=== PATIENT | female | born 1990 | race Caucasian/White ===

== ENCOUNTER 2016-03-20 16:42 | Emergency (ER) | payer BC, OTHER ==
--- NOTE | 2016-03-20 18:59 | ED ---
General Adult HPI - General Chief complaint: Abdominal Pain Stated complaint: lump lower left abdomen Time Seen by Provider: 03/20/16 18:40 Source: patient, RN notes reviewed Mode of arrival: ambulatory Limitations: no limitations - History of Present Illness Initial comments: This is a 25-year-old female who presents with left lower quadrant swelling. Patient states she's had left lower quadrant pain since a history of ectopic 2-3 years ago. Patient states the left lower quadrant pain is not different than she has had in the past, but patient has noticed some swelling to this area that is tender to palpation. Patient states the swelling is more noticeable with standing. Patient has a past surgical history of section approximately 6 years ago and states the swelling is near the left side of this incision. Patient denies any erythema or warmth to the area. Patient states she has a history of recent miscarriage at the beginning of January, but patient denies any vaginal bleeding or vaginal discharge today. Patient denies any dysuria. Patient denies any nausea/vomiting/diarrhea, fever/chills. Patient states last menstrual period was in October 2015. Patient is not on any control and is unsure if she is today. Patient's past medical history significant for diabetes mellitus. Patient denies any recent fever, chills, shortness breath, chest pain, abdominal pain, nausea/vomiting/ diarrhea, back pain, numbness, tingling, hematuria, headache, or visual changes , or any other complaints. - Related Data Home Medications Medication Instructions Recorded Confirmed glyBURIDE/METFORMIN HCL 1 tab PO DAILY 07/15/13 03/20/16 [Glucovance 2.5-500 mg Tablet] Allergies Allergy/AdvReac Type Severity Reaction Status Date / Time No Known Allergies Allergy Verified 03/20/16 18:49 Review of Systems ROS Statement: Those systems with pertinent positive or pertinent negative responses have been documented in the HPI. ROS Other: All systems not noted in ROS Statement are negative. Past Medical History Past Medical History: Diabetes Mellitus Additional Past Medical History / Comment(s): Morbid obesity History of Any Multi-Drug Resistant Organisms: None Reported Past Surgical History: Section, Cholecystectomy Past Anesthesia/Blood Transfusion Reactions: No Reported Reaction Past Psychological History: Anxiety Smoking Status: Former smoker Past Alcohol Use History: None Reported Past Drug Use History: None Reported - Past Family History Mother Family Medical History: Coronary Artery Disease (CAD), Diabetes Mellitus General Exam - General Exam Comments Initial Comments: General: The patient is awake and alert, in no distress, and does not appear acutely ill. Eye: Pupils are equal, round and reactive to light, extra-ocular movements are intact. No nystagmus. There is normal conjunctiva bilaterally. No signs of icterus. Ears: TMs pink and pearly with intact cone of light bilaterally. Normal external ear canals Nose: Nasal turbinates pink and moist Mouth and throat: There are moist mucous membranes and no oral lesions. Neck: The neck is supple, there is no tenderness or JVD. Cardiovascular: There is a regular rate and rhythm. No murmur, rub or gallop is appreciated. Respiratory: Lungs are clear to auscultation, respirations are non-labored, breath sounds are equal. No wheezes, stridor, rales, or rhonchi. Gastrointestinal: There is tenderness to palpation of the left lower quadrant especially over the left side of a well-healed transverse incision scar from a past , there is mild swelling to this area noted with standing. There is a small lump approximately 2 cm in diameter noted to this area. Soft, non- distended, abdomen without organomegaly noted. There is no rebound or guarding present. No CVA tenderness. Bowel sounds are unremarkable. Musculoskeletal: Normal ROM, no tenderness. Strength 5/5. Sensation intact. Radial pulses equal bilaterally 2+. Neurological: A&O x 3. CN II-XII intact, There are no obvious motor or sensory deficits. Coordination appears grossly intact. Speech is normal. Skin: There is a well-healed transverse scar from a past . Skin is warm and dry and no rashes or lesions are noted. Psychiatric: Cooperative, appropriate mood & affect, normal judgment. Limitations: no limitations By manual exam: Present: adnexal tenderness (Pt has left side adnexal tenderness , but states this was less painful than abdominal palpation of the left lower quadrant). Absent: cervical motion tenderness, adnexal mass, uterine tenderness Course Vital Signs 03/20/16 17:17 Temperature 97.6 F Pulse Rate 82 Respiratory 20 Rate Blood Pressure 123/79 O2 Sat by Pulse 99 Oximetry Medical Decision Making - Medical Decision Making This is a 25-year-old female who presents with left lower quadrant swelling especially with standing over the healed incision site from a past . On physical exam There is tenderness to palpation of the left lower quadrant especially over the left side of a well-healed transverse incision scar from a past , there is mild swelling to this area noted with standing. There is a small lump approximately 2 cm in diameter noted to this area. Soft, non- distended, abdomen without organomegaly noted. There is no rebound or guarding present. No CVA tenderness. Bowel sounds are unremarkable. Patient had mild left adnexal tenderness on pelvic exam but this was less painful than with palpation of the left lower quadrant during the abdominal exam. Labs were drawn and reviewed. Patient's urine hCG was negative. Patient's serum quantitative hCG came back at 27 indicating possible . At this time transvaginal ultrasound was done and reviewed showing: There is 2.1 x 2.5 x 2.3 cm heterogenous area noted in the lower uterine segment and may represent early or blighted ovum changes. Underlying early normal cannot be excluded. A short-term follow-up in 4 weeks' time would be beneficial in the evaluation. Serum beta hCG levels are also low. #2 a complex cyst in the right ovary may be related to corpus luteum cyst. It is less likely to represent ectopic without pole. #3 the left ovary is not visualized. Read by Dr. Rodriguez. I discussed these results with patient. I discussed a repeat hCG and a follow-up ultrasound in 4 weeks. I discussed return parameters.I discussed that the patient's left lower quadrant pain could be regaining of a hernia. I discussed that CT at this time would be contraindicated due to possible . I discussed return parameters and worsening signs and symptoms of hernia. Patient is not in pain at this time. Discussed that patient should follow up with PCP in one to 2 days or return to the [facility] for any worsening symptoms or for any further concerns. Patient was receptive to this plan and patient will be discharged home. I discussed his case with attending physician Dr. Clement who agrees the plan as stated above. - Lab Data Result diagrams: 03/20/16 19:35 03/20/16 19:35 Lab Results 03/20/16 03/20/16 03/20/16 Range/Units 19:03 19:03 19:35 WBC (3.8-10.6) k/uL RBC (3.80-5.40) m/uL Hgb (11.4-16.0) gm/dL Hct (34.0-46.0) % MCV (80.0-100.0) fL MCH (25.0-35.0) pg MCHC (31.0-37.0) g/dL RDW (11.5-15.5) % Plt Count (150-450) k/uL Neutrophils % % Lymphocytes % % Monocytes % % Eosinophils % % Basophils % % Neutrophils # (1.3-7.7) k/uL Lymphocytes # (1.0-4.8) k/uL Monocytes # (0-1.0) k/uL Eosinophils # (0-0.7) k/uL Basophils # (0-0.2) k/uL PT (9.0-12.0) sec INR (<1.1) APTT (22.0-30.0) sec Sodium 141 (137-145) mmol/L Potassium 4.1 (3.5-5.1) mmol/L Chloride 102 (98-107) mmol/L Carbon Dioxide 27 (22-30) mmol/L Anion Gap 12 mmol/L BUN 12 (7-17) mg/dL Creatinine 0.57 (0.52-1.04) mg/dL Est GFR (MDRD) Af Amer >60 (>60 ml/min/1.73 sqM) Est GFR (MDRD) Non-Af >60 (>60 ml/min/1.73 sqM) Glucose 107 H (74-99) mg/dL Plasma Lactic Acid Víctor (0.7-2.0) mmol/L Calcium 9.5 (8.4-10.2) mg/dL Total Bilirubin 0.5 (0.2-1.3) mg/dL AST 21 (14-36) U/L ALT 30 (9-52) U/L Alkaline Phosphatase 99 (38-126) U/L Total Protein 7.8 (6.3-8.2) g/dL Albumin 4.5 (3.5-5.0) g/dL Amylase 46 (30-110) U/L Lipase 51 (23-300) U/L HCG, Quant 27.8 mIU/mL Urine Color Light Yellow Urine Appearance Clear (Clear) Urine pH 7.0 (5.0-8.0) Ur Specific Neche 1.011 (1.001-1.035) Urine Protein Negative (Negative) Urine Glucose (UA) Negative (Negative) Urine Ketones Negative (Negative) Urine Blood Negative (Negative) Urine Nitrate Negative (Negative) Urine Bilirubin Negative (Negative) Urine Urobilinogen <2.0 (<2.0) mg/dL Ur Leukocyte Esterase Negative (Negative) Urine HCG, Qual Not Detected (Not Detectd) 03/20/16 03/20/16 03/20/16 Range/Units 19:35 19:35 19:35 WBC 6.9 (3.8-10.6) k/uL RBC 5.03 (3.80-5.40) m/uL Hgb 13.3 (11.4-16.0) gm/dL Hct 41.5 (34.0-46.0) % MCV 82.6 (80.0-100.0) fL MCH 26.5 (25.0-35.0) pg MCHC 32.0 (31.0-37.0) g/dL RDW 12.5 (11.5-15.5) % Plt Count 197 (150-450) k/uL Neutrophils % 60 % Lymphocytes % 32 % Monocytes % 6 % Eosinophils % 1 % Basophils % 0 % Neutrophils # 4.1 (1.3-7.7) k/uL Lymphocytes # 2.2 (1.0-4.8) k/uL Monocytes # 0.4 (0-1.0) k/uL Eosinophils # 0.1 (0-0.7) k/uL Basophils # 0.0 (0-0.2) k/uL PT 10.0 (9.0-12.0) sec INR 1.0 (<1.1) APTT 24.7 (22.0-30.0) sec Sodium (137-145) mmol/L Potassium (3.5-5.1) mmol/L Chloride (98-107) mmol/L Carbon Dioxide (22-30) mmol/L Anion Gap mmol/L BUN (7-17) mg/dL Creatinine (0.52-1.04) mg/dL Est GFR (MDRD) Af Amer (>60 ml/min/1.73 sqM) Est GFR (MDRD) Non-Af (>60 ml/min/1.73 sqM) Glucose (74-99) mg/dL Plasma Lactic Acid Víctor 1.1 (0.7-2.0) mmol/L Calcium (8.4-10.2) mg/dL Total Bilirubin (0.2-1.3) mg/dL AST (14-36) U/L ALT (9-52) U/L Alkaline Phosphatase (38-126) U/L Total Protein (6.3-8.2) g/dL Albumin (3.5-5.0) g/dL Amylase (30-110) U/L Lipase (23-300) U/L HCG, Quant mIU/mL Urine Color Urine Appearance (Clear) Urine pH (5.0-8.0) Ur Specific Neche (1.001-1.035) Urine Protein (Negative) Urine Glucose (UA) (Negative) Urine Ketones (Negative) Urine Blood (Negative) Urine Nitrate (Negative) Urine Bilirubin (Negative) Urine Urobilinogen (<2.0) mg/dL Ur Leukocyte Esterase (Negative) Urine HCG, Qual (Not Detectd) Disposition Clinical Impression: Corpus luteum cyst of right ovary, Elevated serum hCG Disposition: HOME SELF-CARE Condition: Good Instructions: Ovarian Cyst (ED) Additional Instructions: Please have your serum quantitative hCG level rechecked in 48 hours. It was suggested to have a follow-up ultrasound in 4 weeks' time. Please follow-up with family doctor in the next 2 days of symptoms have not improved. Please return to emergency room if the symptoms increase or worsen or for any other concerns. Time of Disposition: 23:52
[2016-03-20 19:21] LABS: Appearance,Urine Clear (Clear); Bilirubin,Urine Negative (Negative); Glucose,Urine (UA) Negative (Negative); Ketones,Urine Negative (Negative); Leukocyte Esterase,Urine Negative (Negative); Nitrite,Urine Negative (Negative); Protein,Urine Negative (Negative); Specific Gravity,Urine 1.011 (1.001-1.035); UA Billing (MACRO vs. MICRO) CHEM; Urobilinogen,Urine <2.0 mg/dL (<2.0)
[2016-03-20 19:53] LABS: Basophils % (A) 0 %; CH 27.5; CHCM 33.4; Eosinophils # (A) 0.1 k/uL (0-0.7); Eosinophils % (A) 1 %; HCT 41.5 % (34.0-46.0); HDW 2.78; HGB 13.3 gm/dL (11.4-16.0); Luc % (Auto) 1; Lymphocytes # (A) 2.2 k/uL (1.0-4.8); Lymphocytes % (A) 32 %; MCH 26.5 pg (25.0-35.0); MCV 82.6 fL (80.0-100.0); Mean Platelet Volume 7.4; Monocytes # (A) 0.4 k/uL (0-1.0); Monocytes % (A) 6 %; Neutrophils # (A) 4.1 k/uL (1.3-7.7); Neutrophils % (A) 60 %; RBC 5.03 m/uL (3.80-5.40); RDW 12.5 % (11.5-15.5); WBC 6.9 k/uL (3.8-10.6); WBC (Perox) 6.76
[2016-03-20 20:02] LABS: Partial Thromboplastin Time 24.7 sec (22.0-30.0)
[2016-03-20 20:04] LABS: ALT 30 U/L (9-52); AST 21 U/L (14-36); Alkaline Phosphatase 99 U/L (38-126); Amylase 46 U/L (30-110); Anion Gap 12 mmol/L; Blood Urea Nitrogen 12 mg/dL (7-17); Calcium 9.5 mg/dL (8.4-10.2); Carbon Dioxide 27 mmol/L (22-30); Chloride 102 mmol/L (98-107); Glucose 107 mg/dL (74-99); Non-African American GFR(MDRD) >60 (>60 ml/min/1.73 sqM); Potassium 4.1 mmol/L (3.5-5.1); Sodium 141 mmol/L (137-145); Total Bilirubin 0.5 mg/dL (0.2-1.3); Total Protein 7.8 g/dL (6.3-8.2)
[2016-03-20 20:20] LABS: HCG,Quantitative Serum 27.8 mIU/mL
--- NOTE | 2016-03-20 23:03 | US ---
EXAMINATION TYPE: US OB <=14 wks transvag DATE OF EXAM: 03/20/2016 9:57 PM COMPARISON: 11/29/2013 CLINICAL HISTORY: left lower quadrant pain, patient states she had a miscarriage on January, cu rrently she has LLQ pain and HCG level of 27 EXAM PERFORMED: Transvaginal (TV) EXAM MEASUREMENTS: GESTATIONAL AGE / DATING Physician Established: not established Dates by LMP: unknown Dates by First Scan: no dates by first scan Dates by Current Scan for: no dates by today's scan MATERNAL ANATOMY Uterus: 8.7 x 4.6 x 6.0cm Right Ovary: 3.3 x 3.2 x 3.1cm Left Ovary: not visualized due to overlying bowel Post CDS / Adnexa: wnl Presence of free fluid: none GESTATION / SURVEY No IUP seen at this time Date of LMP: unknown Beta HcG (if available): 27 TECHNOLOGIST IMPRESSION: no viable IUP seen at this time, highly vascular isoechoic, complex mass s een in anterior MARIO measuring 2.1 x 2.5 x 2.3cm. Septated cyst seen on right ovary measuring 2.5 x 1. 8 x 3.2cm The endometrium is thickened measuring 1.51 cm in thickness and is a heterogenous in echo pattern. Th ere is evidence of somewhat saclike heterogenous hypervascular area is noted in the lower uterine seg ment measuring 2.1 x 2.5 x 2.3 cm and may represent blighted ovum or recent changes or very early normal . No definite pole, yolk sac, heart motion is noted in the endometr ial cavity at present. Septated 2.5 x 1.8 x 3.2 cm complex cyst is noted in the right ovary and may represent corpus luteum cyst. It is less likely to represent ectopic without pole. IMPRESSION: 1. There is 2.1 x 2.5 x 2.3 cm heterogenous area noted in the lower uterine segment and may represent early or blighted ovum changes. Underlying early normal cannot be excluded. A agnieszka rt-term follow-up in 4 weeks time would be beneficial in the evaluation. Serum beta-hCG levels are al so low. 2. A complex cyst in the right ovary may be related to corpus luteum cyst. 3. The left ovary is not visualized. A phone report is given to Rissa Quinn at the time of the dictation.
[2016-03-21 00:03] VITALS: BP 146/76; PULSE 77; RESP 18; TEMP 98.1
== END 2016-03-21 00:03 | disposition home or self-care (01) ==
LOC: EC 16:42
DX: N83.11 Corpus luteum cyst of right ovary (principal); E11.9 Type 2 diabetes mellitus without complications; Z32.01 Encounter for pregnancy test, result positive; Z79.84 Long term (current) use of oral hypoglycemic drugs; Z87.891 Personal history of nicotine dependence
CPT/HCPCS: 36415; 76801; 76817; 80053; 81003; 81025; 82150; 83605; 83690; 84702; 85025; 85610; 85730; 87086; 99284

== ENCOUNTER 2017-08-25 23:32 | Emergency (ER) | payer BC, OTHER ==
[2017-08-25 23:46] VITALS: RESP 18
[2017-08-26] MEDS ORDERED: diphenhydrAMINE 50 MG/ML 1 ML VIAL IVP STA (00:08)
[2017-08-26] MEDS ORDERED: SODIUM CHLORIDE 0.9% 1,000 ML IV STA (00:08)
[2017-08-26] MEDS ORDERED: KETOROLAC 30 MG/ML 1 ML VIAL IVP STA (00:08)
[2017-08-26] MEDS ORDERED: METOCLOPRAMIDE 5 MG/ML 2 ML VIAL IVP STA (00:08)
[2017-08-26 00:39] LABS: Basophils % (A) 0 %; Eosinophils # (A) 0.1 k/uL (0-0.7); Eosinophils % (A) 1 %; HCT 37.8 % (34.0-46.0); HGB 12.7 gm/dL (11.4-16.0); Lymphocytes # (A) 2.6 k/uL (1.0-4.8); Lymphocytes % (A) 34 %; MCH 27.2 pg (25.0-35.0); MCHC 33.7 g/dL (31.0-37.0); MCV 80.7 fL (80.0-100.0); Mean Platelet Volume 6.9; Monocytes # (A) 0.4 k/uL (0-1.0); Monocytes % (A) 6 %; Neutrophils # (A) 4.2 k/uL (1.3-7.7); Neutrophils % (A) 57 %; Platelet Count 189 k/uL (150-450); RBC 4.68 m/uL (3.80-5.40); RDW 13.9 % (11.5-15.5); WBC 7.5 k/uL (3.8-10.6)
--- NOTE | 2017-08-26 00:40 | XR ---
EXAMINATION TYPE: XR chest 2V DATE OF EXAM: 08/26/2017 COMPARISON: NONE HISTORY: Chest pain TECHNIQUE: Frontal and lateral views of the chest are obtained. FINDINGS: Heart and mediastinum are normal. Lungs are clear. Diaphragm is normal. Bony thorax appear s normal. There are chest leads. IMPRESSION: Normal chest
[2017-08-26 00:50] LABS: ALT 37 U/L (9-52); AST 28 U/L (14-36); Albumin 3.9 g/dL (3.5-5.0); Alkaline Phosphatase 95 U/L (38-126); Anion Gap 13 mmol/L; Blood Urea Nitrogen 11 mg/dL (7-17); Calcium 9.3 mg/dL (8.4-10.2); Carbon Dioxide 22 mmol/L (22-30); Chloride 102 mmol/L (98-107); Glucose 204 mg/dL (74-99); Magnesium 1.7 mg/dL (1.6-2.3); Potassium 4.1 mmol/L (3.5-5.1); Sodium 137 mmol/L (137-145); Total Bilirubin 0.4 mg/dL (0.2-1.3); Total Protein 6.7 g/dL (6.3-8.2)
[2017-08-26 00:55] LABS: D-Dimer 0.22 mg/L FEU (<0.60); Partial Thromboplastin Time 24.3 sec (22.0-30.0); Prothrombin Time 9.6 sec (9.0-12.0)
[2017-08-26 01:03] LABS: Creatine Kinase 103 U/L (30-135)
--- NOTE | 2017-08-26 01:06 | ED ---
Chest Pain HPI - General Chief Complaint: Chest Pain Stated Complaint: chest pain, headache Time Seen by Provider: 08/25/17 23:53 Source: patient Mode of arrival: ambulatory Limitations: no limitations - History of Present Illness Initial Comments: 26-year-old female patient presents to the emergency department today with multiple complaints. Patient states that she is having substernal chest pain that feels like something is "squeezing my heart". Patient states that this started at 6 PM and has continued steadily since then. Patient states that the pain did radiate through to her back beneath the left shoulder blade for a short period of time. Patient states that she has also had a migraine headache for the last 5 days, states that today she developed tingling to the left side of her face. Patient does have a history of migraine headache but denies any history of the paresthesia. Patient denies any nausea or vomiting. Denies any shortness of breath, dizziness, weakness, blurred vision, or double vision. Patient denies any light or sound sensitivity with her headache. States she took ibuprofen for the pain but it did not improve her symptoms. Patient does have a history of diabetes takes Glucovance. She denies any recent head injury. Patient denies any recent rash, fever, chills, cough, congestion, abdominal pain, diarrhea, constipation, back pain, hematuria, dysuria, urinary urgency, urinary frequency, or any other complaints. Denies use of control , recent car rides or long trips, calf pain or swelling. Denies any chance of . - Related Data Home Medications Medication Instructions Recorded Confirmed glyBURIDE/METFORMIN HCL 1 tab PO DAILY 08/25/17 08/26/17 [Glucovance 5-500 mg Tablet] Allergies Allergy/AdvReac Type Severity Reaction Status Date / Time No Known Allergies Allergy Verified 08/25/17 23:59 Review of Systems ROS Statement: Those systems with pertinent positive or pertinent negative responses have been documented in the HPI. ROS Other: All systems not noted in ROS Statement are negative. EKG Findings - EKG Comments: EKG Findings:: EKG obtained at 2351 shows normal sinus rhythm with a ventricular rate is 74, NC interval 126, QRS duration 96, QT 388, QTC 4:30. No evidence of ST elevation or depression. Past Medical History Past Medical History: Diabetes Mellitus Additional Past Medical History / Comment(s): Morbid obesity History of Any Multi-Drug Resistant Organisms: None Reported Past Surgical History: Section, Cholecystectomy Past Anesthesia/Blood Transfusion Reactions: No Reported Reaction Past Psychological History: Anxiety Smoking Status: Former smoker Past Alcohol Use History: Rare Past Drug Use History: None Reported - Past Family History Mother Family Medical History: Coronary Artery Disease (CAD), Diabetes Mellitus General Exam Limitations: no limitations General appearance: alert, in no apparent distress, other (Social well-developed , well-nourished adult female patient in no acute distress. Vital signs upon presentation are temperature 98.2F, pulse 79, respirations 18, blood pressure 151/88, pulse ox 99% on room air.) Eye exam: Present: normal appearance, PERRL, EOMI. Absent: scleral icterus, conjunctival injection, nystagmus, periorbital swelling ENT exam: Present: normal exam, normal oropharynx, mucous membranes moist Respiratory exam: Present: normal lung sounds bilaterally. Absent: respiratory distress, wheezes, rales, rhonchi, stridor, chest wall tenderness Cardiovascular Exam: Present: regular rate, normal rhythm, normal heart sounds. Absent: systolic murmur, diastolic murmur, rubs, gallop, clicks GI/Abdominal exam: Present: soft, normal bowel sounds. Absent: distended, tenderness, guarding, rebound, rigid Neurological exam: Present: alert, oriented X3, CN II-XII intact Expanded Speech: Present: fluid speech Cranial nerves: EOM's Intact: Normal, Nystagmus: Normal Motor strength exam: RUE: 5, LUE: 5, RLE: 5, LLE: 5 Psychiatric exam: Present: normal affect, normal mood Skin exam: Present: warm, dry, intact, normal color. Absent: rash Course Vital Signs 08/25/17 08/25/17 08/26/17 23:42 23:55 00:41 Temperature 98.3 F Pulse Rate 79 82 75 Pulse Rate [ 82 Post Closer ] Respiratory 18 18 18 Rate Blood Pressure 151/88 160/85 121/71 O2 Sat by Pulse 99 98 98 Oximetry 08/26/17 08/26/17 01:24 01:59 Temperature 97.2 F L Pulse Rate 71 68 Pulse Rate [ Post Closer ] Respiratory 18 18 Rate Blood Pressure 103/71 105/51 O2 Sat by Pulse 100 99 Oximetry Chest Pain MDM - MDM 26-year-old female patient presented to the emergency department today for evaluation of chest pain, migraine headache, left-sided facial tingling. Physical examination was relatively unremarkable. Patient was neurologically intact. EKG showed normal sinus rhythm. Chest x-ray showed no acute cardiopulmonary process. Labs are unremarkable. Upon reevaluation patient is pain free. States all symptoms have resolved including the tingling to her face. I did discuss possibility of this being related to migraine headache. She will be discharged to follow-up with her primary care physician to discuss referral to neurology. Return parameters discussed in detail. She verbalizes understanding and agrees with this plan. RADIOLOGY:Two-view x-ray of the chest was obtained. Heart and mediastinum are normal. Lungs are clear. Diaphragm is normal. Bony thorax appears normal. There are chest leads. Impression by Dr. Durham shows normal chest. Disposition Clinical Impression: Migraine headache, Chest pain Disposition: HOME SELF-CARE Condition: Good Instructions: Chest Pain (ED), Migraine Headache (ED) Additional Instructions: Follow-up through primary care physician in one to 2 days for discussion for possible referral to neurology. Return here immediately for any new, worsening , or concerning symptoms. Is patient prescribed a controlled substance at d/c from ED?: No Referrals: None,Stated [Primary Care Provider] - 1-2 days Time of Disposition: 01:49
[2017-08-26 01:11] LABS: Appearance,Urine Clear (Clear); Bilirubin,Urine Negative (Negative); Blood,Urine Negative (Negative); Color,Urine Yellow; Glucose,Urine (UA) 1+ (Negative); Ketones,Urine Trace (Negative); Leukocyte Esterase,Urine Negative (Negative); Nitrite,Urine Negative (Negative); Protein,Urine Negative (Negative); Urobilinogen,Urine <2.0 mg/dL (<2.0)
[2017-08-26 01:17] LABS: Creatine Kinase MB 0.3 ng/mL (0.0-2.4); Troponin I <0.012 ng/mL (0.000-0.034)
[2017-08-26 02:01] VITALS: BP 105/51; PULSE 68; TEMP 97.2
== END 2017-08-26 01:59 | disposition home or self-care (01) ==
LOC: EC 23:32
DX: G43.909 Migraine, unspecified, not intractable, without status migrainosus (principal); R07.2 Precordial pain; M25.512 Pain in left shoulder; R20.2 Paresthesia of skin; E11.9 Type 2 diabetes mellitus without complications; E66.01 Morbid (severe) obesity due to excess calories; Z68.41 Body mass index [BMI] 40.0-44.9, adult; Z87.891 Personal history of nicotine dependence; Z79.84 Long term (current) use of oral hypoglycemic drugs; Z82.49 Family history of ischemic heart disease and other diseases of the circulatory system
CPT/HCPCS: 99285; 96374; 96375 ×2; 96361; 36415; 85379; 80053; 82550; 82553; 83735; 84484; 85025; 85610; 85730; 81003; 71046; J1200; J2765; J1885

== ENCOUNTER 2023-09-12 05:50 | Day surgery (SDC) | payer BC, OTHER ==
--- NOTE | 2023-09-07 08:57 | P.GSHP ---
History of Present Illness H&P Date: 09/07/23 Chief Complaint: Left renal calculus The patient is a 32-year-old white female with a history of urolithiasis. She passed a right ureteral calculus in May 2023. Imaging shows a 9 mm left mid- pole calculus, seen on both CT scan and plain radiograph. She desires removal of the calculus. The pros, cons, and risks of extracorporal shockwave lithotripsy (ESWL) versus ureteroscopy with laser lithotripsy were reviewed in detail with the patient. - Constitutional Constitutional: Denies chills, Denies fever - Gastrointestinal Gastrointestinal: Denies nausea, Denies vomiting - Genitourinary (Female) Genitourinary: Reports kidney stones, Denies flank pain, Denies hematuria - Psychiatric Psychiatric: Reports anxiety, Reports depression Past Medical History Past Medical History: Diabetes Mellitus Additional Past Medical History / Comment(s): Morbid obesity History of Any Multi-Drug Resistant Organisms: None Reported Past Surgical History: Section, Cholecystectomy Past Anesthesia/Blood Transfusion Reactions: No Reported Reaction Past Psychological History: Anxiety Past Alcohol Use History: Rare Past Drug Use History: None Reported - Past Family History Mother Family Medical History: Coronary Artery Disease (CAD), Diabetes Mellitus Medications and Allergies Home Medications Medication Instructions Recorded Confirmed Type glyBURIDE/METFORMIN HCL 1 tab PO DAILY 08/25/17 08/26/17 History [Glucovance 5-500 mg Tablet] Allergies Allergy/AdvReac Type Severity Reaction Status Date / Time No Known Allergies Allergy Verified 08/25/17 23:59 Surgical - Exam - General well developed, well nourished, no distress - Neck no masses, trachea midline - Respiratory normal respiratory effort - Abdomen Abdomen: soft, non tender, no guarding, no rigid, no rebound - Psychiatric oriented to time, oriented to person, oriented to place, speech is normal, memory intact Assessment and Plan (1) Calculus of kidney Status: Acute Code(s): N20.0 - CALCULUS OF KIDNEY SNOMED Code(s): 06461579 Plan: Left extracorporal shockwave lithotripsy (ESWL). The procedure has been reviewed in detail with the patient. She has been made aware of potential risks, which include anesthesia, renal contusion, perinephric hematoma, treatment failure, incomplete fragmentation, and Steinstrasse. She is aware of the possible need for a secondary procedure.
[2023-09-12] MEDS ORDERED: LIDOCAINE 1% (10MG/ML) FOR IV START INTRADERMA PRN (06:36)
[2023-09-12 07:08] LABS: Glucose,Whole Blood 159 mg/dL (70-110)
[2023-09-12] MEDS: IV FLUID CONTINUATION 1,000 ML IV ONE (07:11)
[2023-09-12] MEDS: LACTATED RINGERS 1,000 ML IV SCH (07:11)
[2023-09-12 07:14] VITALS: TEMP 97.7
[2023-09-12] MEDS ORDERED: fentaNYL (PF) 50 MCG/ML 2 ML AMP ONE (07:29)
[2023-09-12] MEDS ORDERED: KETAMINE HCL IN 0.9 % NACL 50 MG/5 ML SYRINGE ONE (07:29)
[2023-09-12] MEDS ORDERED: PROPOFOL 10 MG/ML 20 ML VIAL IV ONE (07:29)
[2023-09-12] MEDS ORDERED: MIDAZOLAM 2 MG/2 ML VIAL ONE (07:29)
--- NOTE | 2023-09-12 08:09 | XR ---
EXAMINATION TYPE: XR KUB DATE OF EXAM: 09/12/2023 COMPARISON: 07/15/2013 INDICATION: Renal stone TECHNIQUE: Single view abdomen FINDINGS: There is a normal bowel gas pattern. Psoas margins are normal. No organomegaly is present. There is a 1.0 cm calcification inferior pole left kidney. IMPRESSION: 1. Left renal cyst
--- NOTE | 2023-09-12 08:23 | P.OP ---
Date of Procedure: 09/12/23 Preoperative Diagnosis: Left Renal Calculus Postoperative Diagnosis: Same Procedure(s) Performed: Left Extracorporal shockwave lithotripsy (ESWL) Anesthesia: MAC Surgeon: Lio Almonte Estimated Blood Loss (ml): 0 IV fluids (ml): 400 Pathology: none sent Condition: stable Disposition: PACU Indications for Procedure: The patient is a 32-year-old white female with a history of urolithiasis. She passed a right ureteral calculus in May 2023. Imaging shows a 9 mm left mid- pole calculus, seen on both CT scan and plain radiograph. She desires removal of the calculus. The pros, cons, and risks of extracorporal shockwave lithotripsy (ESWL) versus ureteroscopy with laser lithotripsy were reviewed in detail with the patient. He has chosen to undergo ESWL and comes for this reason. Operative Findings: The calculus has fragmented well. Description of Procedure: The patient was taken to the operating room and placed on the Dornier Compact Delta II lithotripter in the supine position. The calculus was seen on biplanar fluoroscopy. Once the patient was properly positioned and sedated, lithotripsy was performed. The energy level was gradually increased per protocol, to an energy level of 4. After 200 shocks were administered, a 2 minute pause was instituted per protocol. A total of 2500 shocks were given at a rate of 80 shocks per minute. Fluoroscopy was utilized at a minimum to ensure proper positioning and determine the treatment status. The calculus changed in appearance, consistent with fragmentation. The patient tolerated the procedure well was taken to the recovery room in stable condition. Instructions were given to strain the urine, and the patient will follow-up within one week.
[2023-09-12 08:52] VITALS: BP 128/70; PULSE 89; RESP 16
== END 2023-09-12 09:35 | disposition home or self-care (01) ==
LOC: ORWHC2ENDO 05:50
PROVIDERS: ATTEND Urology
DX: N20.0 Calculus of kidney (principal); E11.9 Type 2 diabetes mellitus without complications; E66.01 Morbid (severe) obesity due to excess calories; N28.1 Cyst of kidney, acquired; F41.9 Anxiety disorder, unspecified; F32.A Depression, unspecified; F43.10 Post-traumatic stress disorder, unspecified; Z79.84 Long term (current) use of oral hypoglycemic drugs; Z79.899 Other long term (current) drug therapy; Z68.41 Body mass index [BMI] 40.0-44.9, adult
CPT/HCPCS: 81025; 74018; 50590; J2250; J3010; J2704

== ENCOUNTER → 2023-09-19 | Outpatient (CLI) | payer OTHER ==
--- NOTE | 2023-09-19 14:46 | XR ---
EXAMINATION TYPE: XR KUB DATE OF EXAM: 09/19/2023 1:27 PM CLINICAL INDICATION:Female, 32 years old with history of N20.0 calculus; [facility] COMPARISON: None. TECHNIQUE: One radiographic view of the abdomen was obtained. FINDINGS: Postcholecystectomy Surgical clips are seen in the right upper quadrant. The bowel gas pattern is nonspecific without dilated loops of small or large bowel. There is no evide nce for organomegaly or pneumoperitoneum. The osseous structures are intact. No abnormal calcifications are appreciated. Right kidney obscured by fecal contents. Previously alejandro ntified 10 mm calculus is not identified, possibly due to obscuring abdominal contents. Fecal material and gas are demonstrated throughout the colon and rectum. IMPRESSION: Nonspecific bowel gas pattern without radiographic evidence for acute process.
== END | disposition home or self-care (01) ==
LOC: RADXRMAIN 13:13
PROVIDERS: ATTEND Urology
DX: N20.0 Calculus of kidney (principal)
CPT/HCPCS: 74018